=== PATIENT | male | born 1955 | race Caucasian/White ===

== ENCOUNTER 2019-05-30 06:33 | Day surgery (SDC) | payer BC ==
[2019-05-30] MEDS ORDERED: Sodium Chloride 0.9% 10 ML Syringe FLUSH PRN (07:00)
[2019-05-30] MEDS ORDERED: Lactated Ringers 1,000 ML IV SCH (07:00)
[2019-05-30] MEDS ORDERED: fentaNYL 100 MCG/2 ML SDV ONE (07:42)
[2019-05-30] MEDS ORDERED: Propofol 200 MG/20 ML SDV ONE ×2 (07:42→08:42)
--- NOTE | 2019-05-30 10:52 | OR ---
BRIEF HISTORY OF PRESENT ILLNESS: Mr. Niño is a 63-year-old male who is here for routine colon cancer screening. He tells me his last colonoscopy was 10 years ago in which one he had no polyps. He has no personal or family history of colon cancer. He has no history of bloody or dark black stools. PREOPERATIVE DIAGNOSIS: Colorectal cancer screening. ANESTHESIA: MAC anesthesia. COMPLICATIONS: None. BLOOD LOSS: Minimal. FINDINGS: 1. Splenic flexure colon polyp, 7 mm, carpeted, removed via saline lift and cold snare. 2. Descending colon polyp, 6 mm, cold forceps removal. 3. Rectal polyps x2, 2 mm/3 mm, removed via cold forceps. DETAILS OF PROCEDURE: After informed consent was obtained, the patient was brought to the operating room. MAC anesthesia was induced by Anesthesia colleagues. He was placed in the left lateral decubitus position. Digital rectal exam was performed which was unremarkable. Using the Endocuff device, the endoscope was then introduced into the patient's rectum. The scope was advanced to the cecum. The IC valve and appendiceal orifice were photographed to confirm this. The endoscope was then slowly withdrawn. No pathology was identified except for what is mentioned above in the findings section. The endoscope was then retroflexed at the rectum where one of the above-mentioned rectal polyps was found and removed. The rectum was then desufflated, and the colonoscope was removed. RKM: 05/30/2019 09:14:43 MODL: 05/30/2019 10:12:40 /[id number]
== END 2019-05-30 09:58 | disposition home or self-care (01) ==
LOC: VM.SDS 06:33
PROVIDERS: ATTEND Student in an Organized Health Care Education/Training Program
DX: Z12.11 Encounter for screening for malignant neoplasm of colon (principal); D12.4 Benign neoplasm of descending colon; D12.3 Benign neoplasm of transverse colon; D12.8 Benign neoplasm of rectum; E78.5 Hyperlipidemia, unspecified; M17.11 Unilateral primary osteoarthritis, right knee; Z79.82 Long term (current) use of aspirin; Z87.891 Personal history of nicotine dependence; Z79.899 Other long term (current) drug therapy
CPT/HCPCS: 45385; J2704; J3010; J7120

== ENCOUNTER 2022-10-14 08:32 | Day surgery (SDC) | payer BC, MEDICARE ==
[~2022-10-14 08:32] MED LIST: Lactated Ringers 1,000 ML IV SCH
[2022-10-14] MEDS ORDERED: Propofol 200 MG/20 ML SDV ONE ×2 (09:54→10:14)
[2022-10-14] MEDS ORDERED: fentaNYL 100 MCG/2 ML SDV ONE (09:54)
== END 2022-10-14 12:00 | disposition home or self-care (01) ==
LOC: VM.SDS 08:32
PROVIDERS: ATTEND Family Medicine
DX: Z12.11 Encounter for screening for malignant neoplasm of colon (principal); D12.6 Benign neoplasm of colon, unspecified; Q43.8 Other specified congenital malformations of intestine; E78.00 Pure hypercholesterolemia, unspecified; R73.01 Impaired fasting glucose; F41.9 Anxiety disorder, unspecified; E55.9 Vitamin D deficiency, unspecified; Z86.010 Personal history of colon polyps; Z87.891 Personal history of nicotine dependence; Z98.890 Other specified postprocedural states; Z79.899 Other long term (current) drug therapy
CPT/HCPCS: 00811; 88305; J2704; J3010; J7120